=== PATIENT | female | born 1975 | race Hispanic/Latino ===

== ENCOUNTER 2025-05-05 14:04 | Outpatient (RCR) | payer MEDICAID | END 2025-05-14 | LOC: WCC 14:04 | PROVIDERS: ATTEND Nurse Practitioner Family | DX: E11.9 Type 2 diabetes mellitus without complications (principal); S81.802A Unspecified open wound, left lower leg, initial encounter; E05.90 Thyrotoxicosis, unspecified without thyrotoxic crisis or storm; E78.5 Hyperlipidemia, unspecified; I10 Essential (primary) hypertension ==